=== PATIENT | female | born 1995 | race Two or more races ===

== ENCOUNTER 2016-12-28 15:09 | Observation (INO) | payer MEDICAID ==
[~2016-12-28] VITALS: Ht 160 cm; Wt 102.1 kg
[~2016-12-28 15:09] MED LIST: PREN-88 PO; SULFAMETHOXAZOLE
[2016-12-28] MEDS ORDERED: LACTATED RINGERS 1,000 ML IV SCH (16:15)
[2016-12-28 16:21] LABS: CLARITY URINE CLEAR (CLEAR); COLOR URINE YELLOW (YELLOW); GLUCOSE URINE NEGATIVE (NEGATIVE); KETONES URINE NEGATIVE (NEGATIVE); LEUKOCYTE ESTERASE URINE 1+ (NEGATIVE); NITRITE URINE NEGATIVE (NEGATIVE); OCCULT BLOOD URINE NEGATIVE (NEGATIVE); PH URINE 6.5 (4.5-8.0); PROTEIN URINE NEGATIVE (NEGATIVE); SPECIFIC GRAVITY URINE 1.016 (1.005-1.030); UROBILINOGEN URINE 0.2 E.U./dL (0.2-1.0)
[2016-12-28] MEDS ORDERED: CEFAZOLIN 1000MG PREMIX 50 ML IV NR (16:30)
[2016-12-28] MEDS ORDERED: CEFAZOLIN 1,000 MG in DEXT 5% WATER 100 ML IV NR (16:30)
[2016-12-28 16:47] LABS: BACTERIA URINE 2+; RBC URINE NONE SEEN /hpf (0-2); SQUAMOUS EPITHELIAL CELL URINE 1+ /lpf (RARE/1+); WBC URINE 0-2 /hpf (0-2)
== END 2016-12-28 18:50 | disposition home or self-care (01) ==
LOC: L&D 15:09
PROVIDERS: ADMIT Obstetrics & Gynecology; ATTEND Obstetrics & Gynecology
DX: O26.893 Other specified pregnancy related conditions, third trimester (principal); R35.0 Frequency of micturition; Z3A.35 35 weeks gestation of pregnancy
CPT/HCPCS: 81001; 96361; 96365; 99281; G0378; J0690; J7120; 96360; J7060

== ENCOUNTER 2017-01-21 10:29 | Observation (INO) | payer MEDICAID ==
[~2017-01-21] VITALS: Ht 157.5 cm; Wt 102.1 kg
[~2017-01-21 10:29] MED LIST changes: -SULFAMETHOXAZOLE
== END 2017-01-21 11:45 | disposition home or self-care (01) ==
LOC: L&D 10:29
PROVIDERS: ADMIT Obstetrics & Gynecology; ATTEND Obstetrics & Gynecology
DX: O62.9 Abnormality of forces of labor, unspecified (principal); Z3A.38 38 weeks gestation of pregnancy
CPT/HCPCS: 99281; G0378

== ENCOUNTER 2017-01-28 08:02 | Inpatient (IN) | payer MEDICAID ==
[~2017-01-28] VITALS: Ht 160 cm; Wt 102.1 kg
[2017-01-28] MEDS ORDERED: DEXT 5%/LR + PITOCIN 20UNITS/L 1,000 ML IV SCH ×2 (09:55→17:01)
[2017-01-28] MEDS ORDERED: METHYLERGONOVINE MALEATE 0.2 MG/ML IM PRN (10:00)
[2017-01-28] MEDS ORDERED: CARBOPROST TROMETHAMINE 250 MCG/ML AMPUL IM PRN (10:00)
[2017-01-28] MEDS ORDERED: NALOXONE HCL 0.4 MG/ML 1ML VIAL IM PRN (10:00)
[2017-01-28 10:47] LABS: BASOPHILS % 0.8 % (0.0-2.0); EOSINOPHILS % 1.1 % (0.0-5.0); HEMATOCRIT. 36.1 % (36.0-48.0); HEMOGLOBIN. 11.9 g/dL (12.0-16.0); LYMPHOCYTES % 19.1 % (20.0-50.0); MEAN CORPUSCULAR HEMOGLOBIN 26.9 pg (28.0-32.0); MEAN CORPUSCULAR HGB CONC 32.9 g/dL (31.0-37.0); MEAN CORPUSCULAR VOLUME 81.6 fL (81.0-99.0); MEAN PLATELET VOLUME 10.9 fl (7.4-10.4); MONOCYTES % 4.3 % (2.0-8.0); NEUTROPHILS % 74.7 % (40.0-76.0); PLATELET 204 x1000/uL (130-400); RED BLOOD CELL COUNT 4.42 mill/uL (4.2-5.4); RED CELL DISTRIBUTION WIDTH 14.7 % (11.6-14.6); WHITE BLOOD COUNT 9.2 x1000/uL (4.5-11.0)
[2017-01-28 10:55] LABS: CLARITY URINE CLEAR (CLEAR); COLOR URINE YELLOW (YELLOW); GLUCOSE URINE NEGATIVE (NEGATIVE); KETONES URINE NEGATIVE (NEGATIVE); LEUKOCYTE ESTERASE URINE NEGATIVE (NEGATIVE); NITRITE URINE NEGATIVE (NEGATIVE); OCCULT BLOOD URINE NEGATIVE (NEGATIVE); PH URINE 7.5 (4.5-8.0); PROTEIN URINE NEGATIVE (NEGATIVE); SPECIFIC GRAVITY URINE 1.008 (1.005-1.030); UROBILINOGEN URINE 0.2 E.U./dL (0.2-1.0)
[2017-01-28 10:56] LABS: INR 0.9; PARTIAL THROMBOPLASTIN TIME 29.9 sec (24.0-34.0); PROTHROMBIN TIME 9.7 sec
[2017-01-28 10:57] LABS: INDEX LIPEMIC 1 (1-3)
[2017-01-28 11:14] LABS: *AMPHETAMINES SCREEN URINE NEGATIVE (NEGATIVE); *BARBITURATES SCREEN URINE NEGATIVE (NEGATIVE); *BENZODIAZEPINES SCREEN URINE NEGATIVE (NEGATIVE); *COCAINE SCREEN URINE NEGATIVE (NEGATIVE); CANNABINOID URINE SCREEN NEGATIVE (NEGATIVE); ECSTASY MDMA SCREEN URINE NEGATIVE (NEGATIVE); METHADONE URINE SCREEN NEGATIVE (NEGATIVE); OPIATES URINE SCREEN NEGATIVE (NEGATIVE); PHENCYCLIDINE URINE SCREEN NEGATIVE (NEGATIVE)
[2017-01-28] MEDS: LACTATED RINGERS 1,000 ML IV SCH ×2 (11:27→11:34)
[2017-01-28 13:30] LABS: RUBELLA IGG 78.8 IU/mL (4.99-10)
[2017-01-28 13:31] LABS: HEPATITIS B SURFACE ANTIGEN NEGATIVE
[2017-01-28] MEDS ORDERED: MORPHINE SULFATE/PF 1MG/ML 10ML AMP ONE (15:47)
[2017-01-28] MEDS ORDERED: OXYTOCIN 10 UNITS/ML 1ML ONE (15:47)
[2017-01-28] MEDS ORDERED: ONDANSETRON HCL 4MG/2ML VIAL ONE (15:47)
[2017-01-28] MEDS ORDERED: CEFAZOLIN SODIUM 1000MG/VIAL ONE (15:47)
[2017-01-28] MEDS ORDERED: LANOLIN OINT 0.25 GM TUBE TOP PRN (17:15)
[2017-01-28] MEDS ORDERED: HYDROCODONE/ACETAMINOPHEN 5/325MG TABLET PO PRN (17:15)
[2017-01-28] MEDS ORDERED: ACETAMINOPHEN WITH CODEINE 300/30MG TABLET PO PRN (17:15)
[2017-01-28] MEDS ORDERED: ONDANSETRON HCL 4MG/2ML VIAL IV PRN (17:15)
[2017-01-28] MEDS ORDERED: IBUPROFEN 400MG TABLET PO PRN (17:15)
[2017-01-28] MEDS ORDERED: RHO(D) IMMUNE GLOBULIN 300 MCG/SYR IM PRN (17:15)
[2017-01-28] MEDS ORDERED: BUTORPHANOL TARTRATE 2 MG/ML VIAL IM PRN (17:30)
[2017-01-28] MEDS: KETOROLAC 30MG/ML VIAL IV PRN (19:25)
[2017-01-28 20:50] VITALS: BP 113/67
[2017-01-28] MEDS: DOCUSATE SODIUM 100MG CAPSULE PO SCH (21:00)
[2017-01-28 21:20] VITALS: BP 125/63
[2017-01-28 21:50] VITALS: BP 105/71
[2017-01-28 22:20] VITALS: BP 96/66
[2017-01-29 02:30] VITALS: BP 106/58
[2017-01-29] MEDS: KETOROLAC 30MG/ML VIAL IV PRN ×3 (02:30→15:45)
[2017-01-29 06:21] LABS: BASOPHILS % 0.4 % (0.0-2.0); EOSINOPHILS % 0.8 % (0.0-5.0); HEMATOCRIT. 34.5 % (36.0-48.0); HEMOGLOBIN. 11.4 g/dL (12.0-16.0); LYMPHOCYTES % 19.5 % (20.0-50.0); MEAN CORPUSCULAR HEMOGLOBIN 27.3 pg (28.0-32.0); MEAN CORPUSCULAR HGB CONC 33.1 g/dL (31.0-37.0); MEAN CORPUSCULAR VOLUME 82.4 fL (81.0-99.0); MEAN PLATELET VOLUME 10.3 fl (7.4-10.4); MONOCYTES % 5.5 % (2.0-8.0); NEUTROPHILS % 73.8 % (40.0-76.0); PLATELET 170 x1000/uL (130-400); RED BLOOD CELL COUNT 4.18 mill/uL (4.2-5.4); RED CELL DISTRIBUTION WIDTH 14.4 % (11.6-14.6); WHITE BLOOD COUNT 10.6 x1000/uL (4.5-11.0)
[2017-01-29 06:30] VITALS: BP 111/59
[2017-01-29 08:00] VITALS: BP 112/78
[2017-01-29] MEDS: PRENATAL VIT/FE FUMARATE/FA TABLET PO SCH ×2 (09:00→09:27)
[2017-01-29 12:00] VITALS: BP 109/69
[2017-01-29] MEDS ORDERED: BISACODYL 10MG SUPP PR NR (15:08)
[2017-01-29 15:51] VITALS: BP 110/78
[2017-01-29 20:00] VITALS: BP 101/74
[2017-01-29] MEDS: IBUPROFEN 800MG TABLET PO PRN (20:33)
[2017-01-29] MEDS: DOCUSATE SODIUM 100MG CAPSULE PO SCH (21:00)
[2017-01-30] MEDS: IBUPROFEN 800MG TABLET PO PRN ×3 (03:19→22:55)
[2017-01-30 08:30] VITALS: BP 115/77
[2017-01-30] MEDS: PRENATAL VIT/FE FUMARATE/FA TABLET PO SCH (08:52)
[2017-01-30 17:00] VITALS: BP 125/67
[2017-01-30 20:00] VITALS: BP 117/83
[2017-01-30] MEDS: DOCUSATE SODIUM 100MG CAPSULE PO SCH (20:41)
[2017-01-31] VITALS: BP 115/78
[2017-01-31 04:00] VITALS: BP 110/79
[2017-01-31 08:00] VITALS: BP 110/79
[2017-01-31] MEDS: IBUPROFEN 800MG TABLET PO PRN (08:02)
[2017-01-31] MEDS: PRENATAL VIT/FE FUMARATE/FA TABLET PO SCH (08:02)
== END 2017-01-31 12:30 | disposition home or self-care (01) | DRG 540 ==
LOC: OBSVTOIN 08:02 → L&D 08:02 → 7EST PP/OB 20:38
PROVIDERS: ADMIT Obstetrics & Gynecology; ATTEND Obstetrics & Gynecology
PROC: 10D00Z1 Extraction of Products of Conception, Low, Open Approach (ICD-10-PCS; principal; 2017-01-28 16:14)
DX: O34.211 Maternal care for low transverse scar from previous cesarean delivery (principal); D64.9 Anemia, unspecified; O99.02 Anemia complicating childbirth; O77.0 Labor and delivery complicated by meconium in amniotic fluid; Z37.0 Single live birth; Z3A.41 41 weeks gestation of pregnancy
CPT/HCPCS: 36415; 76805; 76818; 80305; 81003; 82947; 85025; 85610; 85730; 86592; 86703; 86762; 86850; 86900; 86920; 87340; 88307; J0690; J1885; J2274; J2405; J2590; J7120

== ENCOUNTER 2018-09-09 05:28 | Emergency (ER) | payer MEDICAID, OTHER ==
[~2018-09-09] VITALS: Ht 162.6 cm; Wt 104.0 kg
[2018-09-09 06:13] VITALS: BP 134/81
[2018-09-09] MEDS ORDERED: ACETAMINOPHEN 325MG TABLET PO ONE (06:30)
== END 2018-09-09 07:05 | disposition home or self-care (01) ==
LOC: ER 05:28
DX: O26.891 Other specified pregnancy related conditions, first trimester (principal); K08.89 Other specified disorders of teeth and supporting structures; Z98.890 Other specified postprocedural states; Z3A.13 13 weeks gestation of pregnancy
CPT/HCPCS: 99283

== ENCOUNTER 2019-01-01 06:10 | Inpatient (IN) | payer MEDICAID ==
[~2019-01-01] VITALS: Ht 162.6 cm; Wt 111.1 kg
[2019-01-01] MEDS ORDERED: DEXT 5%/LR + PITOCIN 20UNITS/L 1,000 ML IV SCH ×3 (07:25→09:11)
[2019-01-01] MEDS ORDERED: LACTATED RINGERS 1,000 ML IV SCH (07:26)
[2019-01-01] MEDS ORDERED: MISOPROSTOL 100MCG TABLET VG SCH (07:30)
[2019-01-01] MEDS ORDERED: NALOXONE HCL 0.4 MG/ML 1ML VIAL IM PRN ×2 (07:30)
[2019-01-01] MEDS ORDERED: CARBOPROST TROMETHAMINE 250 MCG/ML AMPUL IM PRN ×2 (07:30)
[2019-01-01] MEDS ORDERED: METHYLERGONOVINE MALEATE 0.2 MG/ML IM PRN ×2 (07:30)
[2019-01-01] MEDS ORDERED: CITRIC ACID/SODIUM CITRATE SOLN 30ML UDC PO NR (07:30)
[2019-01-01 07:37] LABS: BASOPHILS % 0.4 % (0.0-2.0); EOSINOPHILS % 2.1 % (0.0-5.0); HEMATOCRIT. 36.4 % (36.0-48.0); LYMPHOCYTES % 20.7 % (20.0-50.0); MEAN CORPUSCULAR HEMOGLOBIN 27.7 pg (28.0-32.0); MEAN CORPUSCULAR VOLUME 83.7 fL (81.0-99.0); MEAN PLATELET VOLUME 10.4 fl (7.4-10.4); NEUTROPHILS % 71.8 % (40.0-76.0); PLATELET 193 x1000/uL (130-400); RED BLOOD CELL COUNT 4.35 mill/uL (4.2-5.4)
[2019-01-01 07:44] LABS: CLARITY URINE CLEAR (CLEAR); COLOR URINE YELLOW (YELLOW); KETONES URINE NEGATIVE (NEGATIVE); LEUKOCYTE ESTERASE URINE NEGATIVE (NEGATIVE); NITRITE URINE NEGATIVE (NEGATIVE); OCCULT BLOOD URINE NEGATIVE (NEGATIVE); PH URINE 6.5 (4.5-8.0); PROTEIN URINE NEGATIVE (NEGATIVE); SPECIFIC GRAVITY URINE 1.011 (1.005-1.030); UROBILINOGEN URINE 0.2 E.U./dL (0.2-1.0)
[2019-01-01 07:46] LABS: INR 0.9; PARTIAL THROMBOPLASTIN TIME 32.4 sec (23.4-31.0); PROTHROMBIN TIME 9.5 sec (9.1-11.1)
[2019-01-01] MEDS ORDERED: FENTANYL CITRATE/PF 50MCG/ML 2ML VIAL ONE (08:00)
[2019-01-01] MEDS ORDERED: OXYTOCIN 10 UNITS/ML 1ML ONE (08:00)
[2019-01-01] MEDS ORDERED: EPHEDRINE SULFATE 50MG/ML VIAL ONE (08:00)
[2019-01-01] MEDS ORDERED: ONDANSETRON HCL 4MG/2ML INJ ONE (08:00)
[2019-01-01] MEDS ORDERED: GLYCOPYRROLATE 0.2 MG/ML 2ML VIAL ONE (08:00)
[2019-01-01] MEDS ORDERED: MORPHINE SULFATE/PF 1MG/ML 10ML AMP ONE (08:00)
[2019-01-01] MEDS ORDERED: DIPHENHYDRAMINE 50MG/ML VIAL ONE (08:00)
[2019-01-01] MEDS ORDERED: KETOROLAC 60MG/2ML VIAL IM ONE (08:00)
[2019-01-01] MEDS ORDERED: PHENYLEPHRINE HCL 10 MG/ML 1ML (IV VIAL) IV ONE (08:00)
[2019-01-01] MEDS ORDERED: CEFAZOLIN SODIUM 1000MG/VIAL ONE (08:00)
[2019-01-01 08:08] LABS: *AMPHETAMINES SCREEN URINE NEGATIVE (NEGATIVE); *BARBITURATES SCREEN URINE NEGATIVE (NEGATIVE); *BENZODIAZEPINES SCREEN URINE NEGATIVE (NEGATIVE)
[2019-01-01 08:09] LABS: *COCAINE SCREEN URINE NEGATIVE (NEGATIVE); CANNABINOID URINE SCREEN NEGATIVE (NEGATIVE); METHADONE URINE SCREEN NEGATIVE (NEGATIVE); OPIATES URINE SCREEN NEGATIVE (NEGATIVE); PHENCYCLIDINE URINE SCREEN NEGATIVE (NEGATIVE)
[2019-01-01] MEDS: LACTATED RINGERS 1,000 ML IV SCH ×2 (08:11→08:12)
[2019-01-01 08:15] LABS: HEPATITIS B SURFACE ANTIGEN NEGATIVE
[2019-01-01] MEDS ORDERED: ONDANSETRON HCL 4MG/2ML INJ IV PRN (09:15)
[2019-01-01] MEDS ORDERED: RHO(D) IMMUNE GLOBULIN 300 MCG/SYR IM PRN (09:15)
[2019-01-01] MEDS ORDERED: HYDROCODONE/ACETAMINOPHEN 5/325MG TABLET PO PRN (09:15)
[2019-01-01] MEDS ORDERED: BISACODYL 10MG SUPP PR PRN (09:15)
[2019-01-01] MEDS ORDERED: LANOLIN OINT 0.25 GM TUBE TOP PRN (09:15)
[2019-01-01] MEDS ORDERED: DIPHENHYDRAMINE 50MG/ML VIAL IV PRN (09:45)
[2019-01-01] MEDS ORDERED: BUTORPHANOL TARTRATE 2 MG/ML VIAL IV PRN (09:45)
[2019-01-01] MEDS ORDERED: NALOXONE HCL 0.4 MG/ML 1ML VIAL IV PRN (09:45)
[2019-01-01 11:00] VITALS: BP 104/59
[2019-01-01 12:00] VITALS: BP 107/59
[2019-01-01] MEDS: MAGNESIUM/ALUMINUM HYDROXIDE/SIMETHICONE 30ML UDC PO SCH ×2 (12:30→17:30)
[2019-01-01] MEDS: SIMETHICONE 80MG TABLET CHEW PO SCH ×2 (13:00→18:00)
[2019-01-01] MEDS: KETOROLAC 30MG/ML VIAL IV PRN ×2 (13:51→20:34)
[2019-01-01 16:00] VITALS: BP 95/56
[2019-01-01 20:20] VITALS: BP 105/68
[2019-01-01] MEDS: DEXT 5%/LR + PITOCIN 20UNITS/L 1,000 ML IV SCH (20:29)
[2019-01-01] MEDS ORDERED: DOCUSATE SODIUM 100MG CAPSULE PO SCH (21:00)
[2019-01-02 04:00] VITALS: BP 111/69
[2019-01-02] MEDS: KETOROLAC 30MG/ML VIAL IV PRN (04:15)
[2019-01-02] MEDS: DEXT 5%/LR + PITOCIN 20UNITS/L 1,000 ML IV SCH (04:16)
[2019-01-02] MEDS ORDERED: HEMORRHOIDAL SUPP PR PRN (06:00)
[2019-01-02 06:11] LABS: BASOPHILS % 0.3 % (0.0-2.0); EOSINOPHILS % 1.1 % (0.0-5.0); HEMATOCRIT. 30.4 % (36.0-48.0); HEMOGLOBIN. 10.1 g/dL (12.0-16.0); LYMPHOCYTES % 15.3 % (20.0-50.0); MEAN CORPUSCULAR HEMOGLOBIN 28.1 pg (28.0-32.0); MEAN CORPUSCULAR VOLUME 84.8 fL (81.0-99.0); MEAN PLATELET VOLUME 10.5 fl (7.4-10.4); MONOCYTES % 4.9 % (2.0-8.0); NEUTROPHILS % 78.4 % (40.0-76.0); PLATELET 169 x1000/uL (130-400); RED BLOOD CELL COUNT 3.59 mill/uL (4.2-5.4); RED CELL DISTRIBUTION WIDTH 13.6 % (11.6-14.6)
[2019-01-02 08:00] VITALS: BP 98/57
[2019-01-02] MEDS: MAGNESIUM/ALUMINUM HYDROXIDE/SIMETHICONE 30ML UDC PO SCH ×4 (08:32→21:23)
[2019-01-02] MEDS: FERROUS SULFATE 325MG TABLET PO SCH ×3 (08:33→17:41)
[2019-01-02] MEDS: PRENATAL VIT/FE FUMARATE/FA TABLET PO SCH (08:33)
[2019-01-02] MEDS: SIMETHICONE 80MG TABLET CHEW PO SCH ×4 (08:33→21:24)
[2019-01-02] MEDS: IBUPROFEN 400MG TABLET PO PRN ×2 (09:37→13:14)
[2019-01-02 17:00] VITALS: BP 98/54
[2019-01-02] MEDS: ACETAMINOPHEN WITH CODEINE 300/30MG TABLET PO PRN (17:48)
[2019-01-02 20:05] VITALS: BP 127/66
[2019-01-03] MEDS ORDERED: TETANUS, DIPHTHERIA, PERTUSSIS VAC/PF 0.5ML (>7YR OLD) IM ONE (01:00)
[2019-01-03] MEDS: ACETAMINOPHEN WITH CODEINE 300/30MG TABLET PO PRN ×3 (01:03→17:42)
[2019-01-03 04:30] VITALS: BP 111/63
[2019-01-03] MEDS: IBUPROFEN 400MG TABLET PO PRN (06:20)
[2019-01-03] MEDS: MAGNESIUM/ALUMINUM HYDROXIDE/SIMETHICONE 30ML UDC PO SCH ×4 (07:30→17:30)
[2019-01-03 09:00] VITALS: BP 118/80
[2019-01-03] MEDS: FERROUS SULFATE 325MG TABLET PO SCH ×2 (09:00→12:30)
[2019-01-03] MEDS: SIMETHICONE 80MG TABLET CHEW PO SCH ×2 (09:00→13:00)
[2019-01-03] MEDS: PRENATAL VIT/FE FUMARATE/FA TABLET PO SCH (09:32)
== END 2019-01-03 18:30 | disposition home or self-care (01) | DRG 540 ==
LOC: 8 EST LDRP 06:10 → OBSVTOIN 06:10 → 8EST 11:08
PROVIDERS: ADMIT Obstetrics & Gynecology; ATTEND Obstetrics & Gynecology
PROC: 10D00Z1 Extraction of Products of Conception, Low, Open Approach (ICD-10-PCS; principal; 2019-01-01)
DX: O34.211 Maternal care for low transverse scar from previous cesarean delivery (principal); D64.9 Anemia, unspecified; O32.1XX0 Maternal care for breech presentation, not applicable or unspecified; O32.2XX0 Maternal care for transverse and oblique lie, not applicable or unspecified; O99.03 Anemia complicating the puerperium; Z37.0 Single live birth; Z3A.39 39 weeks gestation of pregnancy
CPT/HCPCS: 36415; 80305; 86592; 86703; 86762; 86850; 86900; 87340; 88307; 90715; G0378; J0690; J1200; J1885; J2274; J2370; J2405; J2590; J3010; J3490; J7120; A4315

== ENCOUNTER 2022-11-04 02:20 | Emergency (ER) | payer MEDICAID ==
[~2022-11-04] VITALS: Ht 160 cm; Wt 82.2 kg
[2022-11-04 02:27] VITALS: BP 150/100
[2022-11-04 04:43] LABS: CLARITY URINE TURBID (CLEAR); COLOR URINE RED (YELLOW); KETONES URINE NEGATIVE (NEGATIVE); LEUKOCYTE ESTERASE URINE 2+ (NEGATIVE); NITRITE URINE POSITIVE (NEGATIVE); OCCULT BLOOD URINE 2+ (NEGATIVE); PH URINE 5.5 (4.5-8.0); PROTEIN URINE 2+ (NEGATIVE); UROBILINOGEN URINE 0.2 E.U./dL (0.2-1.0)
[2022-11-04] MEDS ORDERED: IBUPROFEN 600MG TABLET PO ONE (04:45)
[2022-11-04] MEDS ORDERED: CEPHALEXIN 250MG CAPSULE PO ONE (05:00)
[2022-11-04] MEDS ORDERED: CEPH500C2 MT (05:01)
[2022-11-04] MEDS ORDERED: IBUP-2029 MT (05:01)
== END 2022-11-04 05:20 | disposition home or self-care (01) ==
LOC: ER 02:20
DX: N39.0 Urinary tract infection, site not specified (principal)
CPT/HCPCS: 81003; 81025; 99283